=== PATIENT | female | born 1960 | race Caucasian/White ===

== ENCOUNTER → 2016-04-26 | Day surgery (SDC) | payer OTHER ==
[~2016-04-26] MED LIST: BUPIVACAINE/EPINEPHRINE 0.5% PF 30 ML VIAL ONE; CITA20TA4 PO; CYCL-36 PO; ESTR1TAB12 PO; KETOROLAC TROMETHAMINE 30 MG/ML (IVP) VIAL IV PUSH ONE; LACTATED RINGER'S 1000 ML INJ 1,000 ML ONE; LORTA5 PO; MEPERIDINE HCL 25 MG/ML VIAL ONE; MIDAZOLAM HCL 2 MG/2 ML VIAL ONE; MORPHINE SULFATE 4 MG/ML INJ ONE; ONDANSETRON HCL 4 MG/2 ML VIAL IV PUSH ONE; PRIL20CA PO; PROPOFOL 200 MG/20 ML AMP IV ONE; REQU2TAB3 PO; TRIAMCINOLONE ACETONIDE 40 MG/ML VIAL ONE; ceFAZolin INJ 1,000 MG VIAL ONE
--- NOTE | 2016-04-29 08:36 | MP ---
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 POSTOPERATIVE DIAGNOSIS Left knee medial meniscal tear with chondromalacia of the patellofemoral joint and medial femoral condyle. SURGEON Dr. Alexis Cabrales INSURANCE LOSS CONTROL SURVEYOR MINDY Rasheed The surgical procedure was assisted by my Advanced Registered Nurse Practitioner. My CARE ADVOCATE presence was necessary throughout this case for the manipulation and positioning of the surgical extremity. My CARE ADVOCATE was assisting me throughout the duration of this procedure. The skill set of an Advanced Registered Nurse Practitioner was medically necessary to complete this procedure. During the surgical case, the surgical corsetier was working at the back table and the Advanced Registered Nurse Practitioner was directly assisting me. PROCEDURE Left knee arthroscopic partial medial meniscectomy with chondroplasty of the medial femoral condyle and of the trochlea. ESTIMATED BLOOD LOSS Minimal. ANESTHESIA General. TOURNIQUET TIME Eight minutes at 250 mmHg pressure. DETAILS OF PROCEDURE The patient was brought back to the operative theatre. General endotracheal anesthesia was administered. The patient received intravenous Ancef. The left lower extremity was prepped and draped in the usual sterile fashion. We started with an inferolateral portal followed by an inferomedial portal under spinal needle visualization. We did get some bleeding into the joint so we decided to put the tourniquet up. We found that there was moderate synovitis in the suprapatellar pouch. There were a couple of loose bodies that were floating around which were removed with the suction. Evaluation of the patella showed grade II chondromalacia diffusely. 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 We established a portal under spinal needle visualization on the medial side medial to the patella tendon. We then used an oscillating shaver to remove the debris as previously described and also to perform a chondroplasty of the trochlea removing the unstable segments of cartilage. We switched the shaver to the other portal in standard technique and then shaved down the other side of the trochlea. We evaluated the medial compartment which showed some just inner edge tearing of the medial meniscus up by the posterior horn. We shaved this and removed only about 5% of the meniscus. No deep significant tears were noted. We performed a chondroplasty of the medial femoral condyle. There were some small areas of grade III chondromalacia. The anterior cruciate ligament was intact with some mild synovitis. The lateral compartment was free of chondromalacia with no meniscal tear noted. We made sure no loose bodies were in the gutters of both the medial and the lateral side. The arthroscope was removed after removing excess fluid. We gave an intraarticular injection of 0.25% Marcaine with 40 mg of Kenalog. The portals were closed with 2-0 Vicryl followed by 3-0 nylon. The leg was dressed and the patient was brought to the recovery room in stable condition. MD CAROLINA Plasencia/HILARY /2:46 PM /8:13 AM
== END | disposition home or self-care (01) ==
LOC: ESDC 12:11
PROVIDERS: ATTEND Orthopaedic Surgery
DX: S83.242A Other tear of medial meniscus, current injury, left knee, initial encounter (principal); M22.42 Chondromalacia patellae, left knee
CPT/HCPCS: 01400; 29881; J0690; J1885; J2175; J2250; J2270; J2405; J3010; J3301; J7120